=== PATIENT | male | born 1985 | race Caucasian/White ===

== ENCOUNTER 2022-10-09 08:32 | Day surgery (SDC) | payer OTHER ==
[~2022-10-09 08:32] MED LIST: Midazolam 1 MG/ML 2 ML SDV ONE; Propofol 200 MG/20 ML SDV ONE; fentaNYL 100 MCG/2 ML SDV ONE
[2022-10-09] MEDS ORDERED: Lactated Ringers 1,000 ML IV SCH (09:00)
[2022-10-09] MEDS ORDERED: Propofol 200 MG/20 ML SDV ONE (10:11)
== END 2022-10-09 11:35 | disposition home or self-care (01) ==
LOC: JP.SDS 08:32
PROVIDERS: ATTEND Student in an Organized Health Care Education/Training Program
DX: K29.50 Unspecified chronic gastritis without bleeding (principal); K29.80 Duodenitis without bleeding; K44.9 Diaphragmatic hernia without obstruction or gangrene; K21.00 Gastro-esophageal reflux disease with esophagitis, without bleeding; Z83.79 Family history of other diseases of the digestive system
CPT/HCPCS: 43239; 45378; 88305; 88342; J2250; J2704; J3010; J7120